=== PATIENT | female | born 1980 | race Hispanic/Latino ===

== ENCOUNTER → 2019-02-02 | Outpatient (CLI) | payer OTHER ==
--- NOTE | 2019-02-02 12:21 | Diagnostic Imaging Report ---
EXAMINATION: ANKLE 3 + VIEWS RIGHT INDICATION: Right ankle sprain COMPARISON: None FINDINGS: No acute fracture or dislocation. The ankle mortise is intact and symmetric. No substantial ankle joint effusion. No substantial degenerative change. IMPRESSION: No acute osseous injury. Signed by: Adela Park MD on 02/02/2019 12:18 PM
== END ==
LOC: RAD 11:41
PROVIDERS: ATTEND Family Medicine
DX: M25.571 Pain in right ankle and joints of right foot (principal); S93.401A Sprain of unspecified ligament of right ankle, initial encounter